=== PATIENT | female | born 1990 | race Two or more races ===

== ENCOUNTER 2019-06-28 11:29 | Inpatient (IN) | payer OTHER ==
[~2019-06-28] VITALS: Ht 165.1 cm; Wt 74.4 kg
[2019-07-05] MEDS ORDERED: OBSTETRIX ONE1 EACH PO (08:11)
== END 2019-07-05 10:09 | disposition home or self-care (01) | DRG 788 ==
LOC: OB/GYN 07-02 01:13 → LDR 07-02 01:13 → OB/GYN 07-02 03:50
PROVIDERS: ADMIT Obstetrics & Gynecology
PROC: 4A1HXCZ Monitoring of Products of Conception, Cardiac Rate, External Approach (ICD-10-PCS; 2019-07-02)
PROC: 4A033R1 Measurement of Arterial Saturation, Peripheral, Percutaneous Approach (ICD-10-PCS; 2019-07-02)
PROC: 10D00Z1 Extraction of Products of Conception, Low, Open Approach (ICD-10-PCS; principal; 2019-07-02 02:00)
DX: O82 Encounter for cesarean delivery without indication (principal); O34.211 Maternal care for low transverse scar from previous cesarean delivery; Z3A.38 38 weeks gestation of pregnancy; Z37.0 Single live birth